=== PATIENT | male | born 1990 | race Caucasian/White ===

== ENCOUNTER 2020-09-10 10:07 | Outpatient (CLI) | payer BC, SELFPAY ==
[2020-09-10 10:46] LABS: SARS-CoV-2 Ag Negative (Negative)
== END 2020-09-10 10:08 | disposition home or self-care (01) ==
LOC: CHSLAB 10:10
PROVIDERS: PCP Family Medicine; Visit Provider Family Medicine
DX: Z20.828 Contact with and (suspected) exposure to other viral communicable diseases (principal); R05 Cough
CPT/HCPCS: 87426

== ENCOUNTER 2021-01-27 11:41 | Outpatient (NON) | payer BC, SELFPAY | END 2021-01-27 11:42 | LOC: CHSLAB 11:43 | PROVIDERS: Visit Provider Family Medicine | DX: D22.39 Melanocytic nevi of other parts of face (principal); D22.0 Melanocytic nevi of lip | CPT/HCPCS: 88305; 88342 ==

== ENCOUNTER 2021-06-23 11:49 | Outpatient (CLI) | payer OTHER, SELFPAY ==
[2021-06-23 12:55] LABS: SARS-CoV-2 Ag Negative (Negative)
== END 2021-06-23 11:50 | disposition home or self-care (01) ==
LOC: CHSLAB 11:53
PROVIDERS: PCP Family Medicine; Visit Provider Nurse Practitioner Family
DX: R53.83 Other fatigue (principal); Z20.822 Contact with and (suspected) exposure to COVID-19
CPT/HCPCS: 87426; C9803

== ENCOUNTER 2022-12-15 08:40 | Outpatient (CLI) | payer OTHER, SELFPAY ==
[2022-12-15 09:36] LABS: Prostate Specific Antigen 1.3 ng/mL (< OR = 4.0)
== END 2022-12-15 08:41 | disposition home or self-care (01) ==
LOC: CHSLAB 08:42
PROVIDERS: PCP Family Medicine; Visit Provider Family Medicine
DX: Z80.42 Family history of malignant neoplasm of prostate (principal)
CPT/HCPCS: 36415; 84153; G0103

== ENCOUNTER 2022-12-20 09:48 | Outpatient (RCR) | payer OTHER, SELFPAY ==
--- NOTE | 2022-12-20 10:41 | PTOPEVAL1 ---
Assessment and note entered by Vinnie Garcia Evaluation Information Assessment Status Evaluation Diagnosis low back pain Onset 12/15/22 Subjective Information Pt. reports that he has had on/off back pain since being in the [place] in 2007. He notes that pain has been increasing over the past 6 months. He recalls about 6 months ago he went to [employer] his son and felt sharp pain in the low back. He reports that he has been doing chiropractic about 1x/month for quit awhile. He states that he has had xray at the chiro and noted that his verterbrae are almost touching. 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 His job duties can vary, he can sit frequently, but also walk frequently. He reports that he does not sleep well at night. He states that he has never had an MRI. He reports that both long periods of standing and sitting. He does note numbness in the legs if he lays on his stomach too long. He reports that his goal is to decrease his back pain. Reported Pain Level Pain Score 4: Self Report Assessment PT Clinical Summary Pt. is a 32 year old male who enters the clinic with low back pain. He presents with impaired postural awareness, impaired l.e. strength, and pain on this date. Continued skilled PT is indicated in order to improve these areas to assist with improving IADL performance. Plan of Care Interventions Electrical Stimulation,Hot Pack/Cold Pack,Manual Therapy,Mechanical Traction,Neuro Re-education, Patient/Caregiver Educati,Therapeutic Exercise, Self-Care/Home Management PT Services Indicated Yes Treatment Frequency and 2x/week x 8 visits Duration These treatments will address the objective and functional deficits as defined above. The patient will be advanced safely and appropriately in order for the patient to progress towards his/her prior level of function. Additional exercises will be introduced and as well as a comprehensive home exercise program upon discharge, if needed, ?to ensure carryover of functional gains achieved in the clinic. This treatment plan has been reviewed and agreement upon by the patient.
== END 2022-12-26 17:17 | disposition home or self-care (01) ==
LOC: CHSPT 09:48
PROVIDERS: PCP Family Medicine; Visit Provider Family Medicine
DX: M54.50 Low back pain, unspecified (principal); G89.29 Other chronic pain
CPT/HCPCS: 97012; 97014; 97110; 97161; G0283

== ENCOUNTER 2025-02-17 10:08 | Outpatient (CLI) | payer OTHER, SELFPAY ==
[2025-02-17 10:20] LABS: Basophils Absolute Auto 0.05 K/mm3 (0.00-0.10); Basophils Percent Auto 0.6 % (0.0-1.0); Eosinophils Absolute Auto 0.33 K/mm3 (0.02-0.50); Eosinophils Percent Auto 3.8 % (1.0-6.0); Hematocrit 50.1 % (40.0-54.0); Hemoglobin 17.2 g/dL (14.0-18.0); Immature Granulocyte Absolute 0.04 K/mm3 (0.00-0.00); Immature Granulocyte Percent A 0.5 % (0.0-0.0); Lymphocytes Percent Auto 32.6 % (18.0-42.0); Mean Corpuscular HGB Conc 34.3 g/dL (32-36); Mean Corpuscular Volume 84.3 fL (78.0-102.0); Mean Platelet Volume 8.8 fl (8.7-11.0); Monocytes Absolute Auto 0.63 K/mm3 (0.10-0.90); Monocytes Percent Auto 7.3 % (2.0-11.0); Neutrophils Absolute Auto 4.73 K/mm3 (1.70-7.20); Neutrophils Percent Auto 55.2 % (50.0-70.0); Platelet Count Result 331 K/mm3 (150-420); Red Blood Count 5.94 M/mm3 (4.70-6.10); Red Cell Distribution Width 12.8 % (11.6-14.4); White Blood Count 8.6 K/mm3 (4.8-10.8)
[2025-02-17 10:56] LABS: Alanine Aminotransferase 51 U/L (16-63); Albumin Level 4.7 g/dL (3.4-5.0); Alkaline Phosphatase 82 U/L (46-116); Anion Gap 10 mmol/L (4-12); Aspartate Amino Transferase 22 U/L (15-37); Bilirubin,Total 1.8 mg/dL (0.00-1.00); Blood Urea Nitrogen 12 mg/dL (7-18); Calcium 9.6 mg/dL (8.5-10.1); Carbon Dioxide 29 mmol/L (21-32); Chloride 101 mmol/L (98-108); Cholesterol 206 mg/dL (0-200); Estimated Glomerular Filt Rate > 60; Glucose 102 mg/dL (70-99); HDL Direct 39 mg/dL (40-60); LDL Cholesterol Calculated 147 mg/dL (<130); Osmolality Calculated 289 mOsm/kg (285-295); Potassium 4.2 mmol/L (3.5-5.1); Sodium 140 mmol/L (136-145); Total Protein 8.3 g/dL (6.4-8.2); Triglycerides 102 mg/dL (0-150)
== END 2025-02-17 10:09 | disposition home or self-care (01) ==
LOC: CHSLAB 10:09
PROVIDERS: PCP Family Medicine; Visit Provider Family Medicine
DX: Z00.00 Encounter for general adult medical examination without abnormal findings (principal); Z80.42 Family history of malignant neoplasm of prostate; R35.1 Nocturia
CPT/HCPCS: 36415; 80053; 80061; 84153; 85025